=== PATIENT | female | born 1975 | race Two or more races ===

== ENCOUNTER 2018-03-06 22:23 | Emergency (ER) | payer BC ==
[~2018-03-06] VITALS: Ht 160 cm; Wt 102.4 kg
[2018-03-06] MEDS ORDERED: INSULIN (23:01)
[2018-03-06] MEDS ORDERED: HTN MED (23:01)
[2018-03-07 00:58] VITALS: BP 137/80
== END 2018-03-07 01:19 | disposition home or self-care (01) ==
LOC: ED 03-07 01:13
DX: G89.11 Acute pain due to trauma (principal); M25.512 Pain in left shoulder; R07.81 Pleurodynia; I10 Essential (primary) hypertension; E11.9 Type 2 diabetes mellitus without complications; W01.0XXA Fall on same level from slipping, tripping and stumbling without subsequent striking against object, initial encounter; Y93.89 Activity, other specified; Y92.009 Unspecified place in unspecified non-institutional (private) residence as the place of occurrence of the external cause; Y99.8 Other external cause status
CPT/HCPCS: 71046; 82962; 99284

== ENCOUNTER 2018-03-10 18:02 | Emergency (ER) | payer BC ==
[~2018-03-10] VITALS: Ht 160 cm; Wt 100.8 kg
[~2018-03-10 18:02] MED LIST: HTN MED; INSULIN
[2018-03-10] MEDS ORDERED: SODIUM CHLORIDE 0.9% 1,000ML IVBOLUS ONE ×2 (18:30)
[2018-03-10 18:35] LABS: PH, VENOUS 7.381 pH (7.320-7.420)
[2018-03-10 18:40] LABS: BASOPHILS # (AUTO) 0.03 x10^3/uL (0-0.1); BASOPHILS % (AUTO) 0 % (0-1); EOSINOPHILS # (AUTO) 0.09 x10^3/uL (0-0.4); EOSINOPHILS % (AUTO) 1 % (1-7); LYMPHOCYTES % (AUTO) 34 % (22-44); MD NO; MEAN CORPUSCULAR HEMOGLOBIN 28.9 pg (27.0-34.8); MEAN CORPUSCULAR HGB CONC 33.9 g/dL (32.4-35.8); MEAN CORPUSCULAR VOLUME 85.3 fL (80-100); MEAN PLATELET VOLUME 10.6 fL (7.4-10.4); MONOCYTES # (AUTO) 0.53 x10^3/uL (0.2-0.8); MONOCYTES % (AUTO) 7 % (2-9); NEUTROPHILS # (AUTO) 4.57 x10^3/uL (1.8-6.8); NEUTROPHILS % (AUTO) 58 % (42-75); PLATELET COUNT 283 x10^3/uL (130-400); RED BLOOD COUNT 5.06 x10^6/uL (3.82-5.3); RED CELL DISTRIBUTION WIDTH 13.5 % (9.6-15.2)
[2018-03-10 18:48] LABS: ALANINE AMINOTRANSFERASE 37 U/L (12-78); ALBUMIN 3.5 g/dL (3.4-5.0); ANION GAP 8 mmol/L (5-15); CALCIUM 9.3 mg/dL (8.5-10.1); CHLORIDE 99 mmol/L (98-107); CREATININE 0.92 mg/dL (0.55-1.02)
[2018-03-10 18:50] LABS: ALKALINE PHOSPHATASE 94 U/L (45-117); BILIRUBIN,TOTAL 0.3 mg/dL (0.2-1.0); TOTAL PROTEIN 7.9 g/dL (6.4-8.2)
[2018-03-10 19:10] LABS: ACETONE, SERUM Negative (Negative)
[2018-03-10 20:54] LABS: MICROSCOPIC NOT IND
[2018-03-10 20:57] LABS: CULTURE INDICATED? NO
[2018-03-10 21:24] VITALS: BP 122/72
== END 2018-03-10 21:26 | disposition home or self-care (01) ==
LOC: ED 21:00
DX: E11.65 Type 2 diabetes mellitus with hyperglycemia (principal); I10 Essential (primary) hypertension
CPT/HCPCS: 36415; 80053; 81003; 82010; 82803; 82962; 83690; 85025; 93005; 96360; 99285; J7030

== ENCOUNTER → 2018-08-14 | Outpatient (CLI) | payer OTHER | END | disposition home or self-care (01) | LOC: CFH 09:08 | PROVIDERS: ATTEND Nurse Practitioner Family | DX: Z12.31 Encounter for screening mammogram for malignant neoplasm of breast (principal) | CPT/HCPCS: 77067 ==

== ENCOUNTER 2018-09-24 14:16 | Outpatient (CLI) | payer OTHER ==
[2018-09-24 15:00] LABS: CREATININE 0.75 mg/dL (0.55-1.02)
[2018-09-24] MEDS ORDERED: OMNIPAQUE 350 MG/ML, 100ML BOTTLE ONE (15:00)
== END 2018-09-24 23:59 | disposition home or self-care (01) ==
LOC: RAD 14:16
PROVIDERS: ATTEND Nurse Practitioner Family
DX: R07.9 Chest pain, unspecified (principal); R06.02 Shortness of breath; E11.9 Type 2 diabetes mellitus without complications
CPT/HCPCS: 36415; 71275; 82565; Q9967

== ENCOUNTER → 2020-05-03 | Outpatient (CLI) | payer OTHER | END | disposition home or self-care (01) | LOC: CFH 07:37 | PROVIDERS: ATTEND Nurse Practitioner Family | DX: Z12.31 Encounter for screening mammogram for malignant neoplasm of breast (principal); E04.2 Nontoxic multinodular goiter; Z86.39 Personal history of other endocrine, nutritional and metabolic disease | CPT/HCPCS: 76536; 77067 ==

== ENCOUNTER 2021-03-08 07:02 | Emergency (ER) | payer OTHER ==
[~2021-03-08] VITALS: Ht 165.1 cm; Wt 89.0 kg
--- NOTE | 2021-03-08 07:16 | NUR ---
PEDIATRIC ASSOCIATE: PT ABLE TO PROVIDE URINE SPECIMAN. ORDERED, COLLECTED AND SENT TO LAB.
[2021-03-08 07:30] LABS: MICROSCOPIC AUTO
[2021-03-08] MEDS ORDERED: SODIUM CHLORIDE 0.9% 1,000ML IVBOLUS ONE (08:00)
[2021-03-08 08:26] LABS: BASOPHILS % (AUTO) 1 % (0-1); EOSINOPHILS % (AUTO) 2 % (1-7); LYMPHOCYTES % (AUTO) 28 % (22-44); MEAN CORPUSCULAR HGB CONC 33.3 g/dL (32.4-35.8); MEAN PLATELET VOLUME 9.7 fL (7.4-10.4); MONOCYTES % (AUTO) 8 % (2-9); NEUTROPHILS % (AUTO) 61 % (42-75); PLATELET COUNT 287 x10^3/uL (130-400); RED BLOOD COUNT 4.81 x10^6/uL (3.82-5.3); RED CELL DISTRIBUTION WIDTH 13.5 % (9.6-15.2)
[2021-03-08 08:34] LABS: ALANINE AMINOTRANSFERASE 23 U/L (12-78); ALBUMIN 4.1 g/dL (3.4-5.0); ANION GAP 9 mmol/L (5-15); CALCIUM 9.5 mg/dL (8.5-10.1); CHLORIDE 100 mmol/L (98-107); CREATININE 0.74 mg/dL (0.55-1.02)
[2021-03-08 08:39] LABS: ALKALINE PHOSPHATASE 54 U/L (45-117); BILIRUBIN,TOTAL 0.3 mg/dL (0.2-1.0); TOTAL PROTEIN 8.5 g/dL (6.4-8.2)
--- NOTE | 2021-03-08 10:48 | NUR ---
PT AMBULATED TO ROOM STEADILY, CHANGED INTO GOWN, UPRIGHT ON GURNEY, RESPONDS APPROP TO STAFF, NAD AT REST, SO AT BS, COMFORT MEASURES PROVIDED, CALL LIGHT WITHIN REACH.
--- NOTE | 2021-03-08 10:48 | NUR ---
Patient to room from lobby
[2021-03-08] MEDS ORDERED: KETOROLAC 30 MG/1 ML IM/IV ONE (12:00)
[2021-03-08] MEDS ORDERED: KETOROLAC 30 MG/1 ML ONE (12:07)
[2021-03-08 12:10] VITALS: BP 105/53
== END 2021-03-08 12:14 | disposition home or self-care (01) ==
LOC: ED 11:19
DX: M54.5 Low back pain (principal); R10.9 Unspecified abdominal pain; I10 Essential (primary) hypertension; E11.65 Type 2 diabetes mellitus with hyperglycemia; Z88.4 Allergy status to anesthetic agent
CPT/HCPCS: 36415; 80053; 81001; 83690; 84703; 85025; 96361; 96374; 99283; J1885; J7030